=== PATIENT | female | born 1950 | race Caucasian/White ===

== ENCOUNTER 2023-11-22 14:14 | Outpatient (CLI) | payer MEDICARE | END 2023-11-22 14:15 | disposition home or self-care (01) | LOC: BICMAMMO 14:14 | PROVIDERS: ATTEND Internal Medicine | DX: Z12.31 Encounter for screening mammogram for malignant neoplasm of breast (principal); M81.0 Age-related osteoporosis without current pathological fracture; M85.851 Other specified disorders of bone density and structure, right thigh; Z78.0 Asymptomatic menopausal state; Z98.890 Other specified postprocedural states | CPT/HCPCS: 77063; 77067; 77080 ==